=== PATIENT | female | born 1965 | race Two or more races ===

== ENCOUNTER 2017-11-23 12:12 | Outpatient (CLI) | payer OTHER ==
[~2017-11-23 12:12] MED LIST: BIOTIN1 MG; PROZAC20 MG
== END 2017-11-23 14:14 | disposition home or self-care (01) ==
LOC: RAD 12:12
DX: M25.552 Pain in left hip (principal)

== ENCOUNTER 2017-11-23 12:23 | Outpatient (CLI) | payer OTHER | END 2017-11-23 15:42 | disposition home or self-care (01) | LOC: MAMO-SONO 12:23 | DX: N60.11 Diffuse cystic mastopathy of right breast (principal); Z12.31 Encounter for screening mammogram for malignant neoplasm of breast ==

== ENCOUNTER 2017-11-24 12:23 | Outpatient (CLI) | payer OTHER | END 2017-11-24 12:33 | disposition home or self-care (01) | LOC: RAD 12:23 | DX: M25.562 Pain in left knee (principal); M25.571 Pain in right ankle and joints of right foot ==

== ENCOUNTER → 2019-01-31 | Outpatient (CLI) | payer OTHER | END | disposition home or self-care (01) | LOC: MAMO-SONO 13:26 | DX: N60.11 Diffuse cystic mastopathy of right breast (principal); Z12.31 Encounter for screening mammogram for malignant neoplasm of breast ==

== ENCOUNTER 2020-08-28 12:23 | Outpatient (CLI) | payer OTHER | END 2020-08-28 12:39 | disposition home or self-care (01) | LOC: MAMO-SONO 12:23 | PROVIDERS: ATTEND Obstetrics & Gynecology | DX: N60.11 Diffuse cystic mastopathy of right breast (principal); Z12.31 Encounter for screening mammogram for malignant neoplasm of breast; N64.59 Other signs and symptoms in breast ==

== ENCOUNTER 2021-04-07 11:51 | Emergency (ER) | payer OTHER ==
[~2021-04-07] VITALS: Ht 165.1 cm; Wt 49.9 kg
[2021-04-07] MEDS ORDERED: MEDI-MECLIZINE25 MG PO (17:59)
== END 2021-04-07 18:52 ==
LOC: ER 11:51
DX: R11.10 Vomiting, unspecified (principal); R11.0 Nausea

== ENCOUNTER 2022-03-10 11:05 | Outpatient (CLI) | payer OTHER ==
[~2022-03-10 11:05] MED LIST changes: +MEDI-MECLIZINE25 MG PO
== END 2022-03-10 11:15 | disposition home or self-care (01) ==
LOC: RAD 11:05
PROVIDERS: ATTEND Orthopaedic Surgery
DX: M54.50 Low back pain, unspecified (principal); M54.6 Pain in thoracic spine

== ENCOUNTER 2022-03-11 14:12 | Outpatient (CLI) | payer OTHER | END 2022-03-11 14:13 | disposition home or self-care (01) | LOC: NUCLEAR 14:12 | PROVIDERS: ATTEND Orthopaedic Surgery | DX: M81.0 Age-related osteoporosis without current pathological fracture (principal) ==

== ENCOUNTER 2022-03-29 09:07 | Outpatient (CLI) | payer OTHER | END 2022-03-29 09:08 | disposition home or self-care (01) | LOC: LAB 09:07 | PROVIDERS: ATTEND Orthopaedic Surgery | DX: E55.9 Vitamin D deficiency, unspecified (principal); M85.9 Disorder of bone density and structure, unspecified; E56.1 Deficiency of vitamin K; E21.3 Hyperparathyroidism, unspecified; E88.9 Metabolic disorder, unspecified; M81.8 Other osteoporosis without current pathological fracture ==

== ENCOUNTER 2023-01-04 11:42 | Outpatient (CLI) | payer OTHER | END 2023-01-04 11:47 | disposition home or self-care (01) | LOC: SONOGRAMA 11:42 | PROVIDERS: ATTEND Obstetrics & Gynecology | DX: N60.11 Diffuse cystic mastopathy of right breast (principal) ==

== ENCOUNTER → 2024-03-29 08:26 | Outpatient (CLI) | payer OTHER ==
[2024-03-29 09:09] LABS: HEMOGLOBIN 14.5 g/dL (12.0-15.00); MEAN CELL VOLUME 96.6 fL (80.00-100.00); MEAN CORPUSCULAR HEMOGLOBIN 32.6 pg (27.00-32.0); MEAN CORPUSCULAR HGB CONC 33.7 g/dl (32.0-36.0); PLATELET COUNT 214 K/uL (150-450); RED BLOOD COUNT 4.45 M/uL (4.00-6.00); RED CELL DISTRIBUTION WIDTH 13.3 % (11.5-14.5)
[2024-03-29 10:13] LABS: ALBUMIN 4.1 gm/dL (3.4-5.0); BILIRUBIN TOTAL 0.54 mg/dL (0.3-1.2); CALCIUM 9.5 mg/dL (8.5-10.1); CHOL HDL RATIO 2.3 (0-5.0); CREATININE SERUM 0.57 mg/dL (0.55-1.02); GFR 108.19; GLOBULINA 3.6 G/DL (2.4-3.5); POTASSIUM 5.52 mEq/L (3.5-5.1); TOTAL PROTEIN 7.7 gm/dL (6.4-8.2); TSH 1.07 uIU/mL (0.358-3.74)
[2024-03-29 10:18] LABS: FOLIC ACID 18.38 ng/ml (4.78-20)
== END | disposition home or self-care (01) ==
LOC: LAB 08:26
PROVIDERS: ATTEND Internal Medicine
DX: I11.9 Hypertensive heart disease without heart failure (principal); E78.2 Mixed hyperlipidemia; E03.9 Hypothyroidism, unspecified; E11.9 Type 2 diabetes mellitus without complications; D64.9 Anemia, unspecified

== ENCOUNTER → 2024-07-03 08:22 | Outpatient (CLI) | payer OTHER | END | disposition home or self-care (01) | LOC: NUCLEAR 08:22 | PROVIDERS: ATTEND Internal Medicine | DX: I87.2 Venous insufficiency (chronic) (peripheral) (principal) ==

== ENCOUNTER 2024-07-03 09:24 | Outpatient (CLI) | payer OTHER ==
[2024-07-03 11:12] LABS: BILIRUBIN TOTAL 0.58 mg/dL (0.3-1.2); CALCIUM 9.7 mg/dL (8.5-10.1); CREATININE SERUM 0.46 mg/dL (0.55-1.02); GFR 138.56; POTASSIUM 4.3 mEq/L (3.5-5.1); URIC ACID 2.7 mg/dL (2.5-7.5)
== END 2024-07-03 09:25 | disposition home or self-care (01) ==
LOC: LAB 09:24
PROVIDERS: ATTEND Internal Medicine
DX: E78.5 Hyperlipidemia, unspecified (principal); M10.9 Gout, unspecified; E87.8 Other disorders of electrolyte and fluid balance, not elsewhere classified

== ENCOUNTER 2025-02-25 14:53 | Outpatient (CLI) | payer OTHER | END 2025-02-25 15:22 | disposition home or self-care (01) | LOC: MAMO-SONO 14:53 | DX: Z01.818 Encounter for other preprocedural examination (principal); Z12.39 Encounter for other screening for malignant neoplasm of breast; Z12.31 Encounter for screening mammogram for malignant neoplasm of breast; Z80.3 Family history of malignant neoplasm of breast ==

== ENCOUNTER 2025-04-14 14:34 | Outpatient (CLI) | payer OTHER | END 2025-04-14 14:40 | disposition home or self-care (01) | LOC: RAD 14:34 | PROVIDERS: ATTEND Plastic Surgery | DX: Z01.818 Encounter for other preprocedural examination (principal) ==